=== PATIENT | female | born 1960 | race Caucasian/White ===

== ENCOUNTER 2017-10-29 06:00 | Day surgery (SDC) | payer BC ==
[2017-10-29] MEDS ORDERED: DIPRIVAN 200 MG/20 ML IV ONE (06:01)
[2017-10-29] MEDS ORDERED: Lactated Ringers 1,000 ML IV SCH (06:30)
[2017-10-29 08:19] VITALS: O2SAT 100
[2017-10-29 08:23] VITALS: BP 121/72; PULSE 61
--- NOTE | 2017-10-29 10:29 | OP ---
SURGERY DATE/TIME: 10/29/2017 0707 PREOPERATIVE DIAGNOSES: 1) Screening colonoscopy. 2) Constipation. POSTOPERATIVE DIAGNOSIS: Normal colon. PROCEDURE: Colonoscopy. SURGEON: Bill Parry M.D. ANESTHESIA: Conscious sedation by Edwin Nugent CRNA. ESTIMATED BLOOD LOSS: None. SPECIMENS: None. DESCRIPTION OF PROCEDURE: After informed written consent was obtained, the patient was taken to the endoscopy suite. She underwent monitored anesthesia and digital rectal exam showed normal sphincter tone and no internal lesions. The scope was inserted into the rectum and sequentially the entire colonic mucosa was traversed. The level of cecum was reached and verified with direct visualization of ileocecal valve. Upon withdrawal careful mucosal inspection revealed no obvious gross abnormalities. There was liquid stool present throughout much of the length of the colon. The prep was noted to be fair. Prior to withdrawal retroflexion was performed and showed no internal lesions. The scope was removed and the patient was transferred to the recovery room in excellent condition.
== END 2017-10-29 08:34 | disposition home or self-care (01) ==
LOC: SDC 06:00
PROVIDERS: ATTEND Family Medicine
DX: Z12.11 Encounter for screening for malignant neoplasm of colon (principal); K59.00 Constipation, unspecified
CPT/HCPCS: J2704

== ENCOUNTER 2018-05-02 20:09 | Emergency (ER) | payer BC ==
[2018-05-02 20:37] VITALS: BP 169/99; PULSE 96; O2SAT 99
--- NOTE | 2018-05-02 20:52 | ERPHSYRPT ---
- History of Present Illness Time Seen by Provider: 05/02/18 20:44 Historian: patient Exam Limitations: no limitations Patient Subjective Stated Complaint: pt reports vomiting starting at 0700 today , reports approx 12 episodes. denies abd pain or diarhea. Triage Nursing Assessment: pt is aox3, pupils perrl, afebrile, resps easy and non labored, radial pulses strong and equal, abd is soft and non tender, bowel sounds present and normoactive, no edema appreciated. pt mucous membranes appear dry. Physician History: 57-year-old white female with history of fibromyalgia, colitis, bipolar. Arrives with complaint of persistent nausea and vomiting symptoms for 13 hours she denies any pain no shortness of breath no chest pain no fevers. Past medical history includes fibromyalgia, colitis, bipolar disorder. Distant history of prescription drug abuse and alcohol abuse. Past surgical history includes cholecystectomy and hysterectomy. Timing/Duration: today (past 13 hours) Activities at Onset: none Quality: other (no pain) Abdominal Pain Onset Location: other (no pain) Severity of Pain-Max: none Severity of Pain-Current: none Associated Symptoms: nausea, vomiting, No back, No chest pain, No diaphoresis, No diarrhea, No fever/chills, No fatigue, No headache, No heartburn, No loss of appetite, No neck pain, No rash, No shortness of breath, No syncope, No testicular pain Previous symptoms: no prior history Allergies/Adverse Reactions: No Known Drug Allergies Allergy (Verified 05/02/18 20:37) Home Medications: Furosemide 20 mg [Lasix 20 mg] 20 mg PO BID 05/11/12 [History] Lamotrigine [Lamictal] 150 mg PO HS 05/11/12 [History] Paroxetine HCl [Paxil] 40 mg PO DAILY 05/11/12 [History] Potassium Chloride 10 Meq Tab* [Klor Con 10 MEQ] 10 meq PO BID 05/11/12 [ History] Albuterol Sulfate [Ventolin] 5 mg IH QIDPRN PRN 09/29/17 [History] Aspirin EC 325 mg [Ecotrin 325 MG] 325 mg PO DAILY 09/29/17 [History] Budesonide/Formoterol Fumarate [Symbicort 160-4.5 Mcg Inhaler] 10.2 gm IH BID [History] Diphenhydramine HCl [Benadryl] 50 mg PO Q4HPRN PRN 09/29/17 [History] Gabapentin [Neurontin] 600 mg PO TID 09/29/17 [History] Hydroxyzine Pamoate [Vistaril] 25 mg PO BID 09/29/17 [History] Lactobacillus Combo No.10 [Probiotic] 1 each PO BID 09/29/17 [History] Melatonin 5 mg PO HS 09/29/17 [History] Omeprazole 20 MG [Prilosec 20 mg] 20 mg PO BID 09/29/17 [History] Polyethylene Glycol [Polyox Wsr-301] 1 gm MC DAILY PRN PRN 09/29/17 [History] Primidone [Mysoline] 250 mg PO DAILY 09/29/17 [History] Sodium Phosphate,White-Dibasic [Enema] 133 ml RC DAILY PRN PRN 09/29/17 [History] Hx Tetanus, Diphtheria Vaccination/Date Given: No Hx Influenza Vaccination/Date Given: Yes Hx Pneumococcal Vaccination/Date Given: No Immunizations Up to Date: Yes - Review of Systems Constitutional: No Fever, No Chills Eyes: No Symptoms Ears, Nose, & Throat: No Symptoms Respiratory: No Symptoms Cardiac: No Chest Pain, No Edema, No Syncope Abdominal/Gastrointestinal: Nausea, Vomiting, No Abdominal Pain, No Diarrhea, No Constipation, No Hematemesis, No Hematochezia, No Melena, No Dysphagia, No Appetite Changes Genitourinary Symptoms: No Dysuria Musculoskeletal: No Back Pain, No Neck Pain Skin: No Rash Neurological: No Dizziness, No Focal Weakness, No Sensory Changes Psychological: No Symptoms Endocrine: No Symptoms All Other Systems: Reviewed and Negative - Past Medical History Pertinent Past Medical History: Yes Neurological History: No Pertinent History ENT History: No Pertinent History Cardiac History: No Pertinent History Respiratory History: Asthma Endocrine Medical History: No Pertinent History Musculoskeletal History: Fibromyalgia GI Medical History: Colitis History: No Pertinent History Psycho-Social History: Anxiety, Bipolar Female Reproductive Disorders: No Pertinent History Other Medical History: rx pain med addiction, has been clean for 8 years. fibromyalgia - Past Surgical History Past Surgical History: Yes Neuro Surgical History: No Pertinent History Cardiac: No Pertinent History Respiratory: No Pertinent History Gastrointestinal: Cholecystectomy Genitourinary: No Pertinent History Musculoskeletal: Orthopedic Surgery, Other Female Surgical History: Section, Hysterectomy Other Surgical History: right knee scope. - Social History Smoking Status: Never smoker Exposure to second hand smoke: No Alcohol Use: None Drug Use: none Patient Lives Alone: No Significant Family History: heart disease, hypertension - Female History Hx Now: No - Nursing Vital Signs Nursing Vital Signs: Initial Vital Signs Temperature 98.0 F 05/02/18 20:27 Pulse Rate 96 H 05/02/18 20:27 Respiratory Rate 20 05/02/18 20:27 Blood Pressure 169/99 05/02/18 20:27 O2 Sat by Pulse Oximetry 99 05/02/18 20:27 Pain Scale Pain Intensity 0 - Physical Exam General Appearance: other (well-developed well-nourished whitee female, pale) Eye Exam: PERRL/EOMI, eyes nml inspection Ears, Nose, Throat Exam: normal ENT inspection, pharynx normal, moist mucous membranes Neck Exam: normal inspection, non-tender, supple, full range of motion Respiratory Exam: normal breath sounds, lungs clear, No respiratory distress Cardiovascular Exam: regular rate/rhythm, normal heart sounds, capillary refill <2 sec Gastrointestinal/Abdomen Exam: soft Back Exam: normal inspection, normal range of motion, No CVA tenderness, No vertebral tenderness Extremity Exam: normal inspection, normal range of motion, pelvis stable Neurologic Exam: alert, oriented x 3, cooperative, greenhouse 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 nml as tested, normal mood/affect, nml cerebellar function, sensation nml, No motor deficits Skin Exam: pale SpO2 Interpretation: normal (99%) SpO2: 99 Oxygen Delivery: Room Air - Course Nursing assessment & vital signs reviewed: Yes EKG Interpreted by Me: RATE (71 bpm), Sinus Rhythm, NORMAL AXIS, Other (EKG: Sinus rhythm, 71 bpm, normal axis, no acute ST or T wave changes, essentially normal EKG) Ordered Tests: Active Orders 24 hr Category Date Time Status EKG-ER Only STAT Care 05/02/18 20:48 Active IV Insertion STAT Care 05/02/18 20:48 Active AMYLASE Stat Lab 05/02/18 21:14 Completed BLOOD CULTURE Stat Lab 05/02/18 21:42 Received CBC W DIFF Stat Lab 05/02/18 21:14 Completed CMP Stat Lab 05/02/18 21:14 Completed LIPASE Stat Lab 05/02/18 21:14 Completed Lactic Acid Stat Lab 05/02/18 21:20 Completed UA W/RFX UR CULTURE Stat Lab 05/02/18 23:21 Completed Medication Summary Discontinued Medications Generic Name Dose Route Start Last Admin Trade Name Sourav PRN Reason Stop Dose Admin Sodium Chloride 1,000 mls @ 999 mls/hr 05/02/18 20:48 05/02/18 21:27 Sodium Chloride 0.9% 1000 Ml IV 05/02/18 21:48 999 mls/hr .Q1H1M STA Administration Sodium Chloride Confirm 05/02/18 21:24 Sodium Chloride 0.9% 1000 Ml Administered 05/02/18 21:25 Dose 1,000 mls @ ud .ROUTE .STK-MED ONE Sodium Chloride 1,000 mls @ 999 mls/hr 05/02/18 21:51 05/02/18 22:51 Sodium Chloride 0.9% 1000 Ml IV 05/02/18 22:51 999 mls/hr .Q1H1M STA Administration Sodium Chloride Confirm 05/02/18 22:50 Sodium Chloride 0.9% 1000 Ml Administered 05/02/18 22:51 Dose 1,000 mls @ ud .ROUTE .STK-MED ONE Ondansetron HCl 4 mg 05/02/18 20:48 05/02/18 21:27 Zofran 4 Mg/2 Ml Vial IV 05/02/18 20:49 4 mg STAT ONE Administration Ondansetron HCl Confirm 05/02/18 21:23 Zofran 4 Mg/2 Ml Vial Administered 05/02/18 21:24 Dose 4 mg .ROUTE .STK-MED ONE Ondansetron HCl 4 mg 05/02/18 23:42 Zofran Odt 4 Mg PO 05/02/18 23:43 STAT ONE Lab/Rad Data: Laboratory Result Diagrams 05/02/18 21:14 05/02/18 21:14 Laboratory Results 05/02/18 05/02/18 05/02/18 Range/Units 23:21 21:20 21:14 WBC (4.0-10.5) K/mm3 RBC (4.1-5.4) M/mm3 Hgb (12.0-16.0) gm/dl Hct (35-47) % MCV (78-100) fl MCH (26-32) pg MCHC (32-36) g/dl RDW (11.5-14.0) % Plt Count (150-450) K/mm3 MPV (6-9.5) fl Gran % (36.0-66.0) % Eos # (Auto) (0-0.5) Absolute Lymphs (auto) (1.0-4.6) Absolute Monos (auto) (0.0-1.3) Lymphocytes % (24.0-44.0) % Monocytes % (0.0-12.0) % Eosinophils % (0.00-5.0) % Basophils % (0.0-0.4) % Absolute Granulocytes (1.4-6.9) Basophils # (0-0.4) Sodium 140 (137-145) mmol/L Potassium 4.8 (3.5-5.1) mmol/L Chloride 100 (98-107) mmol/L Carbon Dioxide 26 (22-30) mmol/L Anion Gap 18.9 H (5-15) MEQ/L BUN 20 H (7-17) mg/dL Creatinine 0.57 (0.52-1.04) mg/dL Estimated GFR > 60.0 ML/MIN Glucose 129 H (74-106) mg/dL Lactic Acid 1.9 (0.4-2.0) Calcium 10.1 (8.4-10.2) mg/dL Total Bilirubin 0.80 (0.2-1.3) mg/dL AST 36 (14-36) U/L ALT 28 (0-35) U/L Alkaline Phosphatase 63 (38-126) U/L Serum Total Protein 7.9 (6.3-8.2) g/dL Albumin 5.2 H (3.5-5.0) g/dL Amylase 41 (30-110) U/L Lipase 61 (23-300) U/L Urine Color YELLOW (YELLOW) Urine Appearance CLEAR (CLEAR) Urine pH 7.0 (5-6) Ur Specific [place] 1.027 (1.005-1.025) Urine Protein 30 (Negative) Urine Ketones SMALL (NEGATIVE) Urine Blood NEGATIVE (0-5) Timmy/ul Urine Nitrite NEGATIVE (NEGATIVE) Urine Bilirubin NEGATIVE (NEGATIVE) Urine Urobilinogen NEGATIVE (0-1) mg/dL Ur Leukocyte Esterase NEGATIVE (NEGATIVE) Urine WBC (Auto) 3-5 (0-5) /HPF Urine RBC (Auto) 3-5 (0-2) /HPF U Epithel Cells (Auto) NONE (FEW) /HPF Urine Bacteria (Auto) NONE SEEN (NEGATIVE) /HPF Urine Mucus (Auto) SLIGHT (NEGATIVE) /HPF Urine Culture Reflexed NO (NO) Urine Glucose NEGATIVE (NEGATIVE) mg/dL 05/02/18 Range/Units 21:14 WBC 7.2 (4.0-10.5) K/mm3 RBC 5.17 (4.1-5.4) M/mm3 Hgb 16.3 H (12.0-16.0) gm/dl Hct 47.8 H (35-47) % MCV 92.5 (78-100) fl MCH 31.5 (26-32) pg MCHC 34.1 (32-36) g/dl RDW 12.8 (11.5-14.0) % Plt Count 257 (150-450) K/mm3 MPV 9.2 (6-9.5) fl Gran % 86.6 H (36.0-66.0) % Eos # (Auto) 0.02 (0-0.5) Absolute Lymphs (auto) 0.56 L (1.0-4.6) Absolute Monos (auto) 0.36 (0.0-1.3) Lymphocytes % 7.8 L (24.0-44.0) % Monocytes % 5.0 (0.0-12.0) % Eosinophils % 0.3 (0.00-5.0) % Basophils % 0.3 (0.0-0.4) % Absolute Granulocytes 6.21 (1.4-6.9) Basophils # 0.02 (0-0.4) Sodium (137-145) mmol/L Potassium (3.5-5.1) mmol/L Chloride (98-107) mmol/L Carbon Dioxide (22-30) mmol/L Anion Gap (5-15) MEQ/L BUN (7-17) mg/dL Creatinine (0.52-1.04) mg/dL Estimated GFR ML/MIN Glucose (74-106) mg/dL Lactic Acid (0.4-2.0) Calcium (8.4-10.2) mg/dL Total Bilirubin (0.2-1.3) mg/dL AST (14-36) U/L ALT (0-35) U/L Alkaline Phosphatase (38-126) U/L Serum Total Protein (6.3-8.2) g/dL Albumin (3.5-5.0) g/dL Amylase (30-110) U/L Lipase (23-300) U/L Urine Color (YELLOW) Urine Appearance (CLEAR) Urine pH (5-6) Ur Specific [place] (1.005-1.025) Urine Protein (Negative) Urine Ketones (NEGATIVE) Urine Blood (0-5) Timmy/ul Urine Nitrite (NEGATIVE) Urine Bilirubin (NEGATIVE) Urine Urobilinogen (0-1) mg/dL Ur Leukocyte Esterase (NEGATIVE) Urine WBC (Auto) (0-5) /HPF Urine RBC (Auto) (0-2) /HPF U Epithel Cells (Auto) (FEW) /HPF Urine Bacteria (Auto) (NEGATIVE) /HPF Urine Mucus (Auto) (NEGATIVE) /HPF Urine Culture Reflexed (NO) Urine Glucose (NEGATIVE) mg/dL - Progress Progress: improved Progress Note: 05/02/18 23:39 57-year-old white female arrives with complaint of 13 hours of vomiting. Patient without any abdominal pain chest pain shortness of breath. Patient's labs essentially normal. Patient markedly improved after 2 L of normal saline and Zofran. Patient reexamined in no distress. Will plan to discharge patient. Place patient on clear fluids Zofran. - Departure Time of Disposition: 23:40 Departure Disposition: Home Clinical Impression: Dehydration Vomiting Qualifiers: Vomiting type: unspecified Vomiting Intractability: non-intractable Nausea presence: with nausea Qualified Code(s): R11.2 - Nausea with vomiting, unspecified Condition: Fair Critical Care Time: No Referrals: DOE MONTGOMERY MD [Primary Care Provider] - Instructions: Vomiting -- Adult Additional Instructions: Return home. Plenty of fluids. Clear fluids only 24-48 hours if nausea vomiting or abdominal pain. Zofran as prescribed. Follow-up with your family doctor if symptoms are worse, no better tomorrow, or persist longer than 48 hours. Return for acute distress or for severe symptoms. Prescriptions: Ondansetron ODT 4 MG [Zofran Odt 4 mg] 4 mg PO Q6H PRN PRN #10 tab.rapdis PRN Reason: nausea and vomiting
[2018-05-02 21:17] LABS: BASOPHIL % 0.3 % (0.0-0.4); Basophil (Absolute #) 0.02 (0-0.4); Eosinophil % 0.3 % (0.00-5.0); Eosinophil (Absolute #) 0.02 (0-0.5); Granulocyte Absolute (ANC) 6.21 (1.4-6.9); Granulocytes % 86.6 % (36.0-66.0); Hematocrit 47.8 % (35-47); Hemoglobin 16.3 gm/dl (12.0-16.0); Lymphocyte (Absolute #) 0.56 (1.0-4.6); Lymphocytes % 7.8 % (24.0-44.0); Mean Cell Volume 92.5 fl (78-100); Mean Corpuscular Hemoglobin 31.5 pg (26-32); Mean Corpuscular Hgb Concent. 34.1 g/dl (32-36); Mean Platelet Volume 9.2 fl (6-9.5); Monocyte (Absolute #) 0.36 (0.0-1.3); Platelet Count 257 K/mm3 (150-450); Red Blood Count 5.17 M/mm3 (4.1-5.4); Red Cell Distribution Width 12.8 % (11.5-14.0); White Blood Count 7.2 K/mm3 (4.0-10.5)
[2018-05-02] MEDS ORDERED: Zofran 4 MG/2 ML VIAL ONE (21:23)
[2018-05-02] MEDS ORDERED: Sodium Chloride 0.9% 1000 ML 1,000 ML ONE ×2 (21:24→22:50)
[2018-05-02 21:27] LABS: ALBUMIN 5.2 g/dL (3.5-5.0); ALKALINE PHOSPHATASE 63 U/L (38-126); AMYLASE 41 U/L (30-110); ANION GAP 18.9 MEQ/L (5-15); BLOOD UREA NITROGEN 20 mg/dL (7-17); CHLORIDE 100 mmol/L (98-107); Calcium 10.1 mg/dL (8.4-10.2); Carbon Dioxide 26 mmol/L (22-30); Creatinine 1 0.57 mg/dL (0.52-1.04); Glucose 129 mg/dL (74-106); LIPASE 61 U/L (23-300); Potassium 4.8 mmol/L (3.5-5.1); SGOT/AST 36 U/L (14-36); SGPT/ALT 28 U/L (0-35); SODIUM 140 mmol/L (137-145); Total Protein 7.9 g/dL (6.3-8.2)
[2018-05-02] MEDS: Sodium Chloride 0.9% 1000 ML 1,000 ML IV STA ×2 (21:27→22:51)
[2018-05-02] MEDS: Zofran 4 MG/2 ML VIAL IV ONE (21:27)
[2018-05-02 21:29] LABS: Lactic Acid 1.9 (0.4-2.0)
[2018-05-02 23:33] LABS: Appearance CLEAR (CLEAR); Bilirubin NEGATIVE (NEGATIVE); Blood NEGATIVE Ery/ul (0-5); Glucose NEGATIVE (NEGATIVE); Ketones SMALL (NEGATIVE); Leukocyte Esterase NEGATIVE (NEGATIVE); Nitrite NEGATIVE (NEGATIVE); Protein,Urine Dip 30 (Negative); Specific Gravity 1.027 (1.005-1.025); Urobilinogen NEGATIVE mg/dL (0-1)
[2018-05-03] MEDS ORDERED: ZOFRAN ODT 4 MG ONE (00:43)
[2018-05-03] MEDS: ZOFRAN ODT 4 MG PO ONE (00:45)
== END 2018-05-03 00:58 | disposition home or self-care (01) ==
LOC: ED 20:09
DX: E86.0 Dehydration (principal); R11.2 Nausea with vomiting, unspecified; Z79.899 Other long term (current) drug therapy
CPT/HCPCS: 36000; 36415; 80053; 81001; 82150; 83605; 83690; 85025; 87040; 93005; 96360; 96361; 96374; 99284; J2405; Q0162

== ENCOUNTER 2018-06-16 12:00 | Emergency (ER) | payer BC ==
[2018-06-16 12:23] VITALS: BP 148/86; PULSE 63; O2SAT 100
[2018-06-16] MEDS ORDERED: Adacel Vial IM ONE ×2 (12:31→12:41)
[2018-06-16] MEDS ORDERED: BACIGUENT PACKET TP ONE (12:31)
--- NOTE | 2018-06-16 12:37 | ERPHSYRPT ---
- History of Present Illness Time Seen by Provider: 06/16/18 12:26 Source: patient Exam Limitations: no limitations Patient Subjective Stated Complaint: slammed ring finger on left hand in a metal garage door Triage Nursing Assessment: Pt c/o of left hand ring finger pain due to slamming her finger in a metal garage door, nail is bruised and bloody underneath, throbbing pain with movement, vitals wnl, pulses normal, rates pain with movement of 10/10, nonmovement 3/10 Physician History: This is a 57-year-old white female she arrives with complaint of pain of her left distal fourth finger also subungual hematoma of the left distal fourth finger symptoms for 2 hours. According to the patient she has got it caught under arrives door. She has the above complaints. Last tetanus is 7 years ago. She denies any other complaints. Past medical history includes sleep apnea, angina, hypercholesterolemia, colitis , osteoarthritis, anxiety, bipolar depression, fibromyalgia, alcoholism in the past, prescription drug abuse in the past. Patient states she's been clean for about 9 years. Past surgical history includes cholecystectomy, , hysterectomy, orthopedic surgery, right knee scope Social history of currently denies alcohol tobacco or illicit drug use Occurred: this morning (2 hours ago) Method of Injury: other (Struck by a garage door) Quality: constant Severity of Pain-Max: moderate Severity of Pain-Current: mild Extremities Pain Location: 4th finger: left Modifying Factors: Improves With: nothing Associated Symptoms: none Allergies/Adverse Reactions: No Known Drug Allergies Allergy (Verified 06/16/18 12:23) Home Medications: Furosemide 20 mg [Lasix 20 mg] 20 mg PO BID 05/11/12 [History] Lamotrigine [Lamictal] 200 mg PO HS 05/11/12 [History] Paroxetine HCl [Paxil] 40 mg PO DAILY 05/11/12 [History] Potassium Chloride 10 Meq Tab* [Klor Con 10 MEQ] 10 meq PO BID 05/11/12 [ History] Albuterol Sulfate [Ventolin] 5 mg IH QIDPRN PRN 09/29/17 [History] Aspirin EC 325 mg [Ecotrin 325 MG] 325 mg PO DAILY 09/29/17 [History] Budesonide/Formoterol Fumarate [Symbicort 160-4.5 Mcg Inhaler] 10.2 gm IH BID [History] Diphenhydramine HCl [Benadryl] 50 mg PO Q4HPRN PRN 09/29/17 [History] Gabapentin [Neurontin] 600 mg PO TID 09/29/17 [History] Hydroxyzine Pamoate [Vistaril] 25 mg PO BID 09/29/17 [History] Lactobacillus Combo No.10 [Probiotic] 1 each PO BID 09/29/17 [History] Melatonin 5 mg PO HS 09/29/17 [History] Polyethylene Glycol [Polyox Wsr-301] 1 gm MC DAILY PRN PRN 09/29/17 [History] Primidone [Mysoline] 250 mg PO DAILY 09/29/17 [History] Metoprolol Tartrate 25 mg PO DAILY 06/16/18 [History] Milnacipran HCl [Savella] 50 mg PO QAM 06/16/18 [History] Hx Tetanus, Diphtheria Vaccination/Date Given: No Hx Influenza Vaccination/Date Given: Yes Hx Pneumococcal Vaccination/Date Given: No - Review of Systems Constitutional: No Fever, No Chills Eyes: No Symptoms Ears, Nose, & Throat: No Symptoms Respiratory: No Cough, No Dyspnea Cardiac: No Chest Pain, No Edema, No Syncope Abdominal/Gastrointestinal: No Abdominal Pain, No Nausea, No Vomiting, No Diarrhea Genitourinary Symptoms: No Dysuria Musculoskeletal: Injury (left fourth finger struck by a garage door), Other ( pain left fourth finger, subungual hematoma left fourth finger) Skin: Other (abrasion dorsal distal fourth finger) Neurological: No Dizziness, No Focal Weakness, No Sensory Changes Psychological: No Symptoms Endocrine: No Symptoms All Other Systems: Reviewed and Negative - Past Medical History Pertinent Past Medical History: Yes Neurological History: No Pertinent History ENT History: No Pertinent History Cardiac History: Angina, High Cholesterol Respiratory History: Sleep Apnea Endocrine Medical History: No Pertinent History Musculoskeletal History: Osteoarthritis GI Medical History: Colitis History: No Pertinent History Psycho-Social History: Anxiety, Bipolar Female Reproductive Disorders: No Pertinent History Other Medical History: Fibromyalgia. Justina reports that she is an alcoholic and prescription drug addict. - Past Surgical History Past Surgical History: Yes Neuro Surgical History: No Pertinent History Cardiac: No Pertinent History Respiratory: No Pertinent History Gastrointestinal: Cholecystectomy Genitourinary: No Pertinent History Musculoskeletal: Orthopedic Surgery, Other Female Surgical History: Section, Hysterectomy Other Surgical History: right knee scope. - Social History Smoking Status: Never smoker Exposure to second hand smoke: No Alcohol Use: None Drug Use: none Patient Lives Alone: No Significant Family History: heart disease, hypertension - Female History Hx Now: No - Nursing Vital Signs Nursing Vital Signs: Initial Vital Signs Temperature 97.9 F 06/16/18 12:13 Pulse Rate 63 06/16/18 12:13 Blood Pressure 148/86 06/16/18 12:13 O2 Sat by Pulse Oximetry 100 06/16/18 12:13 Pain Scale Pain Intensity 10 - Physical Exam General Appearance: mild distress, alert Eyes, Ears, Nose, Throat Exam: moist mucous membranes Neck Exam: non-tender, supple Cardiovascular/Respiratory Exam: chest non-tender, normal breath sounds, regular rate/rhythm, no respiratory distress Abdominal Exam: non-tender, No guarding Back Exam: normal inspection, No vertebral tenderness Shoulder Exam: normal inspection, non-tender, no evidence of injury, normal ROM Elbow/Forearm Exam: normal inspection, non-tender, no evidence of injury, normal ROM Wrist Exam: normal inspection, non-tender, no evidence of injury, normal ROM Hand Exam: normal ROM, No normal inspection (left fourth finger with abrasion proximal to the nail dorsally, pain with palpation left distal fourth finger, subungual hematoma left fourth finger. Sensation intact to all fingers. Good capillary refil to all fingers) Neuro/Tendon Exam: normal sensation, normal motor functions Mental Status Exam: alert, oriented x 3, cooperative Skin Exam: normal color, warm, dry, other (Abrasion proximal tonail left fourth finger dorsally) SpO2 Interpretation: normal (100%) SpO2: 100 Oxygen Delivery: Room Air - Course Nursing assessment & vital signs reviewed: Yes - Radiology Exams Left Other X-ray Interpretation: Discussed w/ radiologist (x-ray left fourth finger: Nondisplaced tuft fracture with soft tissue swelling. No other bony, articular , or soft tissue abnormalies) Ordered Tests: Active Orders 24 hr Category Date Time Status Splint STAT Care 06/16/18 13:16 Ordered Wound Care STAT Care 06/16/18 12:31 Active FINGER(S) Stat Exams 06/16/18 13:01 Completed Medication Summary Discontinued Medications Generic Name Dose Route Start Last Admin Trade Name Sourav PRN Reason Stop Dose Admin Bacitracin Zinc 0.9 gm 06/16/18 12:31 06/16/18 13:06 Baciguent Packet TP 06/16/18 12:32 0.9 gm STAT ONE Administration Bacitracin Zinc Confirm 06/16/18 12:41 Baciguent Packet Administered 06/16/18 12:42 Dose 1 gm .ROUTE .STK-MED ONE Cephalexin HCl 500 mg 06/16/18 13:15 Keflex 500 Mg PO 06/16/18 13:16 STAT ONE Diphtheria/Tetanus/Acell Pertussis 0.5 ml 06/16/18 12:31 06/16/18 13:07 Adacel Vial IM 06/16/18 12:32 0.5 ml .ONCE ONE Administration Diphtheria/Tetanus/Acell Pertussis Confirm 06/16/18 12:41 Adacel Vial Administered 06/16/18 12:42 Dose 0.5 ml IM .STK-MED ONE - Progress Progress: improved Progress Note: 06/16/18 13:18 57-year-old white female with the left fourth finger pain after having it struck by a garage door. Patient will with a left fourth toe subungual hematoma. Also patient with a nondisplaced fracture. Patient took aspirin prior to arrival did not want pain medications states she will take Advil at home as needed for pain. Left fourth finger sterilely cleansed by the nurse. Catheterization performed than usual fashion with cautery. Splint placed on left fourth finger (fingertip). Will place patient on Keflex 500 mg orally every 6 hours 7 days. Patient to follow-up with Dr. Montgomery and/or [facility] orthopedics. DTaP has been updated bacitracin was applied as well as dressing. - Departure Time of Disposition: 13:19 Departure Disposition: Home Clinical Impression: Closed fracture of tuft of distal phalanx of finger, Subungual hematoma Condition: Fair Critical Care Time: No Referrals: DOE MONTGOMERY MD [Primary Care Provider] - Instructions: Finger Fracture (DC) Additional Instructions: Return home. Keflex 500 mg orally every 6 hours 7 days. Advil as needed for pain. Cold packs and elevate left hand 24-48 hours. Follow-up with your family doctor or [facility] orthopedics. (Call and arrange appointment for follow-up) Return for acute distress severe symptoms or for any problems. Prescriptions: Cephalexin Mh 500 mg [Keflex 500 mg] 500 mg PO Q6H #28 capsule
[2018-06-16] MEDS ORDERED: BACIGUENT PACKET ONE (12:41)
--- NOTE | 2018-06-16 13:14 | XRAY ---
Indication: Pain following injury. Comparison: None 3 views of the left 4th finger demonstrates nondisplaced tuft fracture with soft tissue swelling. No other bony, articular, or soft tissue abnormalities.
[2018-06-16] MEDS ORDERED: KEFLEX 500 MG PO ONE (13:15)
[2018-06-16] MEDS ORDERED: KEFLEX 500 MG ONE (13:30)
== END 2018-06-16 13:53 | disposition home or self-care (01) ==
LOC: ED 12:00
DX: S62.635A Displaced fracture of distal phalanx of left ring finger, initial encounter for closed fracture (principal); S60.142A Contusion of left ring finger with damage to nail, initial encounter; W22.09XA Striking against other stationary object, initial encounter; M79.645 Pain in left finger(s); G47.30 Sleep apnea, unspecified; E78.00 Pure hypercholesterolemia, unspecified; M19.90 Unspecified osteoarthritis, unspecified site; F41.9 Anxiety disorder, unspecified; F31.9 Bipolar disorder, unspecified; M79.7 Fibromyalgia; Z79.899 Other long term (current) drug therapy
CPT/HCPCS: 73140; 90471; 90715; 99283; A9270-GY

== ENCOUNTER 2018-08-27 19:27 | Emergency (ER) | payer BC ==
[2018-08-27] MEDS ORDERED: TYLENOL 325 MG PO STA (20:02)
[2018-08-27] MEDS ORDERED: Augmentin 875-125 Tablet PO ONE (20:03)
--- NOTE | 2018-08-27 20:03 | ERPHSYRPT ---
- History of Present Illness Time Seen by Provider: 08/27/18 19:50 Source: patient Exam Limitations: clinical condition Patient Subjective Stated Complaint: pt reports bilat ear pain, starting today, states shes also had a scratchy throat, pt reports drainage from left ear yellow in color. pt reports she is in severe pain. pt reports history of substance abuse and alcoholism and states she doesnt want pain medication. Triage Nursing Assessment: pt is aox3, pupils perrl, afebrile, resps easy and non labored, radial pulses strong and equal, cap refill < 3 sec, pt skin pink warm dry. moderate amount of cerumen noted to bilat ears. no drainage noted. Physician History: PATIENT COMPLAINS OF OF BILATERAL EARACHES, LEFT GREATER THAN RIGHT, ASSOCIATED WITH SORETHROAT AND LOW GRADE FEVER. DENIES COUGH OR DYSPNEA. Timing/Duration: gradual onset Severity: moderate ENT Location: ear (L), throat Prearrival Treatment: over the counter meds (ASPIRIN) Modifying Factors: Improves With: nothing Associated Symptoms: ear pain (R), ear pain (L) Allergies/Adverse Reactions: No Known Drug Allergies Allergy (Verified 08/27/18 19:47) Home Medications: Furosemide 20 mg [Lasix 20 mg] 20 mg PO BID 05/11/12 [History] Lamotrigine [Lamictal] 200 mg PO HS 05/11/12 [History] Paroxetine HCl [Paxil] 40 mg PO DAILY 05/11/12 [History] Potassium Chloride 10 Meq Tab* [Klor Con 10 MEQ] 10 meq PO BID 05/11/12 [ History] Albuterol Sulfate [Ventolin] 5 mg IH QIDPRN PRN 09/29/17 [History] Aspirin EC 325 mg [Ecotrin 325 MG] 325 mg PO DAILY 09/29/17 [History] Budesonide/Formoterol Fumarate [Symbicort 160-4.5 Mcg Inhaler] 10.2 gm IH BID [History] Diphenhydramine HCl [Benadryl] 50 mg PO Q4HPRN PRN 09/29/17 [History] Gabapentin [Neurontin] 600 mg PO TID 09/29/17 [History] Hydroxyzine Pamoate [Vistaril] 25 mg PO BID 09/29/17 [History] Lactobacillus Combo No.10 [Probiotic] 1 each PO BID 09/29/17 [History] Melatonin 5 mg PO HS 09/29/17 [History] Polyethylene Glycol [Polyox Wsr-301] 1 gm MC DAILY PRN PRN 09/29/17 [History] Primidone [Mysoline] 250 mg PO DAILY 09/29/17 [History] Metoprolol Tartrate 25 mg PO DAILY 06/16/18 [History] Milnacipran HCl [Savella] 50 mg PO QAM 06/16/18 [History] Hx Tetanus, Diphtheria Vaccination/Date Given: Yes Hx Influenza Vaccination/Date Given: Yes Hx Pneumococcal Vaccination/Date Given: No Immunizations Up to Date: Yes - Review of Systems Constitutional: No Fever, No Chills Eyes: No Symptoms Ears, Nose, & Throat: Ear Pain, Throat Pain Respiratory: No Symptoms, No Cough, No Dyspnea Cardiac: No Symptoms, No Chest Pain, No Edema, No Syncope Abdominal/Gastrointestinal: No Abdominal Pain, No Nausea, No Vomiting, No Diarrhea Genitourinary Symptoms: No Dysuria Musculoskeletal: No Symptoms, No Back Pain, No Neck Pain Skin: No Symptoms, No Rash Neurological: No Dizziness, No Focal Weakness, No Sensory Changes Psychological: No Symptoms Endocrine: No Symptoms All Other Systems: Reviewed and Negative - Past Medical History Pertinent Past Medical History: Yes Neurological History: No Pertinent History ENT History: No Pertinent History Cardiac History: Angina, High Cholesterol Respiratory History: Sleep Apnea Endocrine Medical History: No Pertinent History Musculoskeletal History: Osteoarthritis GI Medical History: Colitis History: No Pertinent History Psycho-Social History: Anxiety, Bipolar Female Reproductive Disorders: No Pertinent History Other Medical History: Fibromyalgia. Justina reports that she is an alcoholic and prescription drug addict. - Past Surgical History Past Surgical History: Yes Neuro Surgical History: No Pertinent History Cardiac: No Pertinent History Respiratory: No Pertinent History Gastrointestinal: Cholecystectomy Genitourinary: No Pertinent History Musculoskeletal: Orthopedic Surgery, Other Female Surgical History: Section, Hysterectomy Other Surgical History: right knee scope. - Social History Smoking Status: Never smoker Exposure to second hand smoke: No Alcohol Use: None Drug Use: none Patient Lives Alone: No Significant Family History: heart disease, hypertension - Female History Hx Now: No - Nursing Vital Signs Nursing Vital Signs: Initial Vital Signs Temperature 99.3 F 08/27/18 19:35 Pulse Rate 83 08/27/18 19:35 Respiratory Rate 18 08/27/18 19:35 Blood Pressure 164/93 08/27/18 19:35 O2 Sat by Pulse Oximetry 100 08/27/18 19:35 Pain Scale Pain Intensity 10 - Physical Exam General Appearance: no apparent distress Eye Exam: bilateral eye: normal inspection, PERRL Ear Exam: right ear: canal normal, TM normal, left ear: swelling (LEFT CANAL SWELLING WITH ERYTHEMA), TM red Nasal Exam: normal inspection Throat Exam: normal, pharynx normal, moist mucus membranes, No tonsillar exudate Cardiovascular/Respiratory Exam: chest non-tender, normal breath sounds SpO2 Interpretation: normal SpO2: 100 O2 Delivery: Room Air Ordered Tests: Medication Summary Discontinued Medications Generic Name Dose Route Start Last Admin Trade Name Freq PRN Reason Stop Dose Admin Acetaminophen 650 mg 08/27/18 20:02 Tylenol 325 Mg PO 08/27/18 20:03 STAT STA Amoxicillin/Clavulanate Potassium 875 mg 08/27/18 20:03 Augmentin 875-125 Tablet PO 08/27/18 20:04 STAT ONE - Progress Progress Note: 08/27/18 20:15 ADMINISTERED AUGMENTIN 875MG ORALLY, TYLENOL 650MG ORALLY - Departure Departure Disposition: Home Clinical Impression: LEFT OTITIS MEDIA/EXTERNA Condition: Stable Critical Care Time: No Referrals: DOE MONTGOMERY MD [Primary Care Provider] - Additional Instructions: TYLENOL OR MOTRIN NEEDED FOR PAIN OR FEVER. ANTIBIOTIC AUGMENTIN 875MG TWICE DAILY FOR 10 DAYS. CORTISPORIN OTIC SOLUTION APPLY 3 DROPS INTO YOUR LEFT EAR CANAL EVERY 6 HOURS FOR 7 DAYS. CONSULT YOUR PRIMARY CARE PROVIDER FOR FOLLOWUP. Prescriptions: Amox Tr/Potass Clav. 875 mg [Augmentin 875-125 Tablet] 875 mg PO BID #20 tablet Edwin/Baci/Poly/Hc Ear Solution* [CORTISPORIN EAR DROPS Solution 1OML] 3 drops OT QID #10 bottle
[2018-08-27] MEDS ORDERED: TYLENOL 325 MG ONE (20:17)
[2018-08-27] MEDS ORDERED: Augmentin 875-125 Tablet ONE (20:17)
[2018-08-27 20:32] VITALS: BP 134/69; PULSE 88; O2SAT 99
== END 2018-08-27 20:40 | disposition home or self-care (01) ==
LOC: ED 19:27
DX: H66.92 Otitis media, unspecified, left ear (principal); H60.92 Unspecified otitis externa, left ear; Z79.899 Other long term (current) drug therapy
CPT/HCPCS: 99283; A9270-GY

== ENCOUNTER 2018-12-31 14:02 | Emergency (ER) | payer BC ==
--- NOTE | 2018-12-31 14:20 | ERPHSYRPT ---
- History of Present Illness Time Seen by Provider: 12/31/18 14:19 Source: patient Exam Limitations: no limitations Physician History: 58 y/o white female presents to ED with right ankle pain 2 hours after twisting it on curb. pt states she does not want any narcotic pain medications. pt can put weight on it but it hurts to do so. Occurred: just prior to arrival Reason for Fall: tripped Injuries/Pain Location: lower extremity (right ankle) Loss of Consciousness: no loss of consciousness Severity of Pain-Max: mild Severity of Pain-Current: mild Modifying Factors: Improves With: movement Associated Symptoms (Fall): extremity injury (right ankle abrasion to right knee ) Allergies/Adverse Reactions: No Known Drug Allergies Allergy (Verified 08/27/18 19:47) Home Medications: Furosemide 20 mg [Lasix 20 mg] 20 mg PO BID 05/11/12 [History] Lamotrigine [Lamictal] 200 mg PO HS 05/11/12 [History] Paroxetine HCl [Paxil] 40 mg PO DAILY 05/11/12 [History] Potassium Chloride 10 Meq Tab* [Klor Con 10 MEQ] 10 meq PO BID 05/11/12 [ History] Albuterol Sulfate [Ventolin] 5 mg IH QIDPRN PRN 09/29/17 [History] Aspirin EC 325 mg [Ecotrin 325 MG] 325 mg PO DAILY 09/29/17 [History] Budesonide/Formoterol Fumarate [Symbicort 160-4.5 Mcg Inhaler] 10.2 gm IH BID [History] Diphenhydramine HCl [Benadryl] 50 mg PO Q4HPRN PRN 09/29/17 [History] Gabapentin [Neurontin] 600 mg PO TID 09/29/17 [History] Hydroxyzine Pamoate [Vistaril] 25 mg PO BID 09/29/17 [History] Lactobacillus Combo No.10 [Probiotic] 1 each PO BID 09/29/17 [History] Melatonin 5 mg PO HS 09/29/17 [History] Polyethylene Glycol [Polyox Wsr-301] 1 gm MC DAILY PRN PRN 09/29/17 [History] Primidone [Mysoline] 250 mg PO DAILY 09/29/17 [History] Metoprolol Tartrate 25 mg PO DAILY 06/16/18 [History] Milnacipran HCl [Savella] 50 mg PO QAM 06/16/18 [History] Hx Tetanus, Diphtheria Vaccination/Date Given: Yes Hx Influenza Vaccination/Date Given: Yes Hx Pneumococcal Vaccination/Date Given: No - Review of Systems Constitutional: No Symptoms Eyes: No Symptoms Ears, Nose, & Throat: No Symptoms Respiratory: No Symptoms Cardiac: No Symptoms Abdominal/Gastrointestinal: No Symptoms Genitourinary Symptoms: No Symptoms Musculoskeletal: Injury, Joint Pain (right ankle) Skin: No Symptoms Neurological: No Symptoms Psychological: No Symptoms Endocrine: No Symptoms Hematologic/Lymphatic: No Symptoms Immunological/Allergic: No Symptoms All Other Systems: Reviewed and Negative - Past Medical History Pertinent Past Medical History: Yes Neurological History: No Pertinent History ENT History: No Pertinent History Cardiac History: Angina, High Cholesterol Respiratory History: Sleep Apnea Endocrine Medical History: No Pertinent History Musculoskeletal History: Osteoarthritis GI Medical History: Colitis History: No Pertinent History Psycho-Social History: Anxiety, Bipolar Female Reproductive Disorders: No Pertinent History Other Medical History: Fibromyalgia. Justina reports that she is an alcoholic and prescription drug addict. - Past Surgical History Past Surgical History: Yes Neuro Surgical History: No Pertinent History Cardiac: No Pertinent History Respiratory: No Pertinent History Gastrointestinal: Cholecystectomy Genitourinary: No Pertinent History Musculoskeletal: Orthopedic Surgery, Other Female Surgical History: Section, Hysterectomy Other Surgical History: right knee scope. - Social History Smoking Status: Never smoker Exposure to second hand smoke: No Alcohol Use: None Drug Use: none Patient Lives Alone: No Significant Family History: heart disease, hypertension - Nursing Vital Signs Nursing Vital Signs: Initial Vital Signs Temperature 99.2 F 12/31/18 14:17 Pulse Rate 68 12/31/18 14:17 Respiratory Rate 16 12/31/18 14:17 Blood Pressure 153/98 12/31/18 14:17 O2 Sat by Pulse Oximetry 98 12/31/18 14:17 Pain Scale Pain Intensity 6 - [place] Coma Score Best Eye Response (Shayna): (4) open spontaneously Best Verbal Response (Shayna): (5) oriented Best Motor Response (Shayna): (6) obeys commands [place] Total: 15 - Physical Exam General Appearance: no apparent distress, alert, anxiety Head Injury: no evidence of injury Eye Exam: PERRL/EOMI, eyes nml inspection ENT Exam: airway nml, nml ext.inspection, No evidence of ENT injury Neck Exam: supple, trachea midline, full range of motion, normal alignment, normal inspection Respiratory/Chest Exam: No chest tenderness Gastrointestinal Exam: No tenderness Rectal Exam: not done Back Exam: normal inspection, normal range of motion, No CVA tenderness, No vertebral tenderness Extremity Exam: pelvis stable, evidence of injury, pain with movement, swelling (right ankle lateral aspect), tenderness Neurologic Exam: alert, oriented x 3, cooperative, 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 tested, normal mood/affect, nml cerebellar function, sensation nml Skin Exam: normal color, warm, dry SpO2 Interpretation: normal O2 Delivery: Room Air Ordered Tests: Active Orders 24 hr Category Date Time Status ANKLE (3 VIEWS) Stat Exams 12/31/18 14:24 Completed - Progress Progress: unchanged, pain not gone completely, re-examined Progress Note: 12/31/18 15:01 right ankle xray-no acute fx or dislocation Counseled pt/family regarding: diagnosis, need for follow-up, rad results - Departure Departure Disposition: Home Clinical Impression: Ankle sprain Condition: Stable Critical Care Time: No Referrals: DOE MONTGOMERY MD [Primary Care Provider] - Additional Instructions: ice pack to area 3 times daily for 2 days. use tylenol and ibuprofen for pain. weightbearing as tolerated. follow up with primary doctor for persistent pain and swelling.
[2018-12-31 14:26] VITALS: O2SAT 98
--- NOTE | 2018-12-31 14:43 | XRAY ---
Indication: Pain following fall/twisting injury. Comparison: None 3 views of the right ankle demonstrates lateral soft tissue swelling. No other bony, articular, or soft tissue abnormalities.
[2018-12-31 15:00] VITALS: BP 128/78; PULSE 58
== END 2018-12-31 15:55 | disposition home or self-care (01) ==
LOC: ED 14:02
DX: S93.401A Sprain of unspecified ligament of right ankle, initial encounter (principal); S80.211A Abrasion, right knee, initial encounter; W01.10XA Fall on same level from slipping, tripping and stumbling with subsequent striking against unspecified object, initial encounter; X50.1XXA Overexertion from prolonged static or awkward postures, initial encounter; Y93.89 Activity, other specified; Y92.89 Other specified places as the place of occurrence of the external cause
CPT/HCPCS: 73610; 99283

== ENCOUNTER 2019-11-07 13:29 | Emergency (ER) | payer BC ==
[2019-11-07 13:51] VITALS: BP 108/63; PULSE 92; O2SAT 99
[2019-11-07] MEDS ORDERED: BABY ASPIRIN 81 MG CHEW PO ONE (13:58)
--- NOTE | 2019-11-07 14:01 | ERPHSYRPT ---
- History of Present Illness Time Seen by Provider: 11/07/19 13:44 Source: patient, other () Exam Limitations: no limitations Patient Subjective Stated Complaint: pt reports she is one week status post triple bypass graft. pt reports today she has a heaviness in her chest and is increasingly short of breath. Triage Nursing Assessment: pt is aox3, pt pale, pt appears in pain, afebrile, pupils perrl, pt is short of breath, pt is able to speak in 4-5 word sentences, pt radial pulses strong and regular, cap refill 3 seconds, pt warm dry. pt with wound vac in place to mid sternal surgical site. skin visible around site does not appear reddened. no drainage or odor present. Physician History: 58 yo wf s/p acute anterior NV 10/31/19/angioplasty/CABG presents w dyspnea x2.5 hr/chest pressure. EKG w elevation V2 and depression in inferior/lateral leads. There is no post-op ekg to compare. [facility]. Given 324 ASA before transfer. Heparin/plavix avoided due to post-op status. Timing/Duration: other (2.5hr) Activities at Onset: rest Severity of Dyspnea-Max: mild Severity of Dyspnea-Current: mild Possible Cause: no prior episodes Associated Symptoms: chest pain/discomfort, heaviness, No calf pain Allergies/Adverse Reactions: No Known Drug Allergies Allergy (Verified 11/07/19 13:53) Home Medications: Furosemide 20 mg [Lasix 20 mg] 20 mg PO BID 05/11/12 [History] Lamotrigine [Lamictal] 200 mg PO HS 05/11/12 [History] PARoxetine HCl [Paxil] 40 mg PO DAILY 05/11/12 [History] Potassium Chloride 10 Meq Tab* [Klor Con 10 MEQ] 10 meq PO BID 05/11/12 [ History] Albuterol Sulfate [Ventolin] 5 mg IH QIDPRN PRN 09/29/17 [History] Aspirin EC 325 mg [Ecotrin 325 MG] 325 mg PO DAILY 09/29/17 [History] Budesonide/Formoterol Fumarate [Symbicort 160-4.5 Mcg Inhaler] 10.2 gm IH BID [History] Gabapentin [Neurontin] 600 mg PO TID 09/29/17 [History] Lactobacillus Combo No.10 [Probiotic] 1 each PO BID 09/29/17 [History] Melatonin 5 mg PO HS 09/29/17 [History] Polyethylene Glycol [Polyox Wsr-301] 1 gm MC DAILY PRN PRN 09/29/17 [History] Primidone [Mysoline] 250 mg PO DAILY 09/29/17 [History] diphenhydrAMINE HCL [Benadryl] 50 mg PO Q4HPRN PRN 09/29/17 [History] hydrOXYzine pamoate [Vistaril] 25 mg PO BID 09/29/17 [History] Metoprolol Tartrate 25 mg PO DAILY 06/16/18 [History] Milnacipran HCl [Savella] 50 mg PO QAM 06/16/18 [History] Hx Tetanus, Diphtheria Vaccination/Date Given: Yes Hx Influenza Vaccination/Date Given: Yes Hx Pneumococcal Vaccination/Date Given: No Travel Risk - International Travel Have you traveled outside of the country in past 3 weeks: No Have you or anyone close to you been diagnosed with or: No Do your reside in a community with a known COVID-19 case?: Yes If Yes where:: [place] - Coronavirus Screening Has patient experienced Coronavirus symptoms: No - Review of Systems Constitutional: No Symptoms Eyes: No Symptoms Ears, Nose, & Throat: No Symptoms Respiratory: Dyspnea on Exertion (RIVERA) Cardiac: Chest Pain Abdominal/Gastrointestinal: No Symptoms Genitourinary Symptoms: No Symptoms Musculoskeletal: No Symptoms Skin: No Symptoms Neurological: No Symptoms Psychological: No Symptoms Endocrine: No Symptoms Hematologic/Lymphatic: No Symptoms Immunological/Allergic: No Symptoms - Past Medical History Pertinent Past Medical History: Yes Neurological History: No Pertinent History ENT History: No Pertinent History Cardiac History: Angina, High Cholesterol Respiratory History: Sleep Apnea Endocrine Medical History: No Pertinent History Musculoskeletal History: Osteoarthritis GI Medical History: Colitis History: No Pertinent History Psycho-Social History: Anxiety, Bipolar Female Reproductive Disorders: No Pertinent History Other Medical History: Fibromyalgia. Justina reports that she is an alcoholic and prescription drug addict. - Past Surgical History Past Surgical History: Yes Neuro Surgical History: No Pertinent History Cardiac: No Pertinent History, CABG Respiratory: No Pertinent History Gastrointestinal: Cholecystectomy Genitourinary: No Pertinent History Musculoskeletal: Orthopedic Surgery, Other Female Surgical History: Section, Hysterectomy Other Surgical History: right knee scope. - Social History Smoking Status: Never smoker Exposure to second hand smoke: No Alcohol Use: None Drug Use: none Patient Lives Alone: No Significant Family History: heart disease, hypertension - Nursing Vital Signs Nursing Vital Signs: Initial Vital Signs Pulse Rate 92 H 11/07/19 13:31 Respiratory Rate 22 11/07/19 13:31 Blood Pressure 108/63 11/07/19 13:31 O2 Sat by Pulse Oximetry 99 11/07/19 13:31 Pain Scale Pain Intensity 2 - Physical Exam General Appearance: mild distress, anxiety Eye Exam: PERRL/EOMI Ears, Nose, Throat Exam: hearing grossly normal, normal ENT inspection, normal pharynx Neck Exam: normal inspection, non-tender Respiratory Exam: crackles/rales (L base), other (Sternotomy dressed) Cardiovascular/Chest Exam: normal heart sounds, regular rate/rhythm, No murmur Abdominal/Gastrointestinal Exam: soft, No tenderness Extremity Exam: non-tender, normal range of motion, swelling (Mild pre-tibial edema(improved per pt)) Neurologic Exam: alert, oriented x 3, cooperative, car dispatcher II-XII nml as tested, normal mood/affect Skin Exam: normal color, warm Lymphatic Exam: adenopathy SpO2 Interpretation: normal SpO2: 99 O2 Delivery: Room Air - Course Nursing assessment & vital signs reviewed: Yes EKG Interpreted by Me: RATE (NSR/Elevation V2/Diffuse ST depression/Poor R wave progression) Ordered Tests: Active Orders 24 hr Category Date Time Status CHEST 1 VIEW (PORTABLE) Stat Exams 11/07/19 13:45 Ordered CBC W DIFF Stat Lab 11/07/19 13:44 Ordered CMP Stat Lab 11/07/19 13:44 Ordered PROTIME WITH INR Stat Lab 11/07/19 13:44 Ordered PTT Stat Lab 11/07/19 13:44 Ordered TROPONIN Q3H Lab 11/07/19 13:45 Ordered TROPONIN Q3H Lab 11/07/19 16:45 Ordered TROPONIN Q3H Lab 11/07/19 19:45 Ordered TROPONIN Q3H Lab 11/07/19 22:45 Ordered TROPONIN Q3H Lab 11/08/19 01:45 Ordered - Progress Progress: unchanged Air Movement: good Progress Note: 11/07/19 14:06 Since pt post-op angioplasty w subsequent STEMI and elevation in V2 wo post-op comparison, pt transferred to [facility] for cardiology/CT surgery consult. Counseled pt/family regarding: diagnosis (Need for transfer) - Departure Departure Disposition: Transfer Clinical Impression: Dyspnea, Chest pain Condition: Fair Critical Care Time: Yes Critical Care Time(excluding separately billable procedures): Critical 30-74 mins Referrals: DOE MONTGOMERY MD [Primary Care Provider] -
== END 2019-11-07 13:55 | disposition short-term general hospital (02) ==
LOC: ED 13:29
DX: R06.00 Dyspnea, unspecified (principal); R07.89 Other chest pain; Z79.899 Other long term (current) drug therapy; G47.30 Sleep apnea, unspecified; Z98.61 Coronary angioplasty status
CPT/HCPCS: 36000; 36415; 84484; 93005; 93041; 99285; 99291; A9270-GY

== ENCOUNTER 2024-02-29 17:18 | Emergency (ER) | payer MEDICARE ==
[2024-02-29 17:32] VITALS: TEMP 97.1
--- NOTE | 2024-02-29 17:45 | ERPHSYRPT ---
<YUAN SALEH - Last Filed: 02/29/24 19:57> - History of Present Illness Time Seen by Provider: 02/29/24 17:38 Historian: patient, family Exam Limitations: no limitations Patient Subjective Stated Complaint: chest pain, L arm numbness, shooting stabbing pain from L arm to L ribs/chest Triage Nursing Assessment: pt to ED c/o chest pain onset around 1700 today. states she has CP off and on and when this pain did not ease and got worse she came to ED. hx of [place] October 2019 and felt very similar to this, sees Dr Partida. stress test couple weeks ago, found blockages, has appointment with Helga Thursday. heart sounds clear, normal S1 and S2, RRR. slight edema, non pitting, in ankles. Physician History: 63 years old female with past medical history of coronary artery disease status post bypass back in October 2019 at [facility] in [place]. History of hypertension, congestive heart failure. Patient is presenting to the emergency room accompanied by her with a chief complaint of left-sided crushing chest pain that started at home an hour prior to arrival to the emergency room with there were getting ready to go outside and eat. The patient states that her chest pain was around her left breast crushing in nature with shortness of breath although she was short of breath all day long. He felt some numbness in her left upper extremity. The patient states that she is scheduled to have a coronary angiogram this coming Thursday after tomorrow because of an abnormality on nuclear stress test done last week. Her electric fork operator is out of [facility] in [place]. Aspirin Treatment Today: 81 mg x 4 Allergies/Adverse Reactions: No Known Drug Allergies Allergy (Verified 11/07/19 13:53) Home Medications: Furosemide 20 mg [Lasix 20 mg] 20 mg PO BID 05/11/12 [History] PARoxetine HCL [Paxil] 40 mg PO DAILY 05/11/12 [History] Potassium Chloride Tab* [Klor Con] 10 meq PO BID 05/11/12 [History] lamoTRIgine [Lamictal] 200 mg PO HS 05/11/12 [History] Albuterol Sulfate [Ventolin] 5 mg IH QIDPRN PRN 09/29/17 [History] Aspirin EC 325 mg [Ecotrin 325 MG] 325 mg PO DAILY 09/29/17 [History] Budesonide/Formoterol Fumarate [Symbicort 160-4.5 Mcg Inhaler] 10.2 gm IH BID 0 09/29/17 [History] Gabapentin [Neurontin] 600 mg PO TID 09/29/17 [History] Lactobacillus Combo No.10 [Probiotic] 1 each PO BID 09/29/17 [History] Melatonin 5 mg PO HS 09/29/17 [History] Polyethylene Glycol [Polyox Wsr-301] 1 gm MC DAILY PRN PRN 09/29/17 [History] Primidone [Mysoline] 250 mg PO DAILY 09/29/17 [History] diphenhydrAMINE HCL [Benadryl] 50 mg PO Q4HPRN PRN 09/29/17 [History] hydrOXYzine pamoate [Vistaril] 25 mg PO BID 09/29/17 [History] Metoprolol Tartrate 25 mg PO DAILY 06/16/18 [History] Milnacipran HCl [Savella] 50 mg PO QAM 06/16/18 [History] Hx Tetanus, Diphtheria Vaccination/Date Given: Yes Hx Influenza Vaccination/Date Given: Yes Hx Pneumococcal Vaccination/Date Given: No Travel Risk - International Travel Have you traveled outside of the country in past 3 weeks: No - Emerging Infectious Disease Are you exhibiting symptoms associated with any current EIDs: No - Review of Systems Constitutional: No Symptoms Respiratory: Dyspnea Cardiac: Chest Pain All Other Systems: Reviewed and Negative - Past Medical History Pertinent Past Medical History: Yes Neurological History: No Pertinent History ENT History: No Pertinent History Cardiac History: Angina, High Cholesterol, Myocardial Infarction ([place]) Respiratory History: Sleep Apnea Endocrine Medical History: No Pertinent History Musculoskeletal History: Osteoarthritis GI Medical History: Colitis History: No Pertinent History Psycho-Social History: Anxiety, Bipolar Female Reproductive Disorders: No Pertinent History Other Medical History: Fibromyalgia. 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 Significant Family History: heart disease, hypertension - Social History Smoking Status: Never smoker Exposure to second hand smoke: No Alcohol Use: None Drug Use: none Patient Lives Alone: No - Physical Exam General Appearance: no apparent distress Eye Exam: PERRL/EOMI, eyes nml inspection Ears, Nose, Throat Exam: normal ENT inspection, TMs normal, pharynx normal Neck Exam: normal inspection, non-tender, supple, full range of motion Respiratory Exam: normal breath sounds, lungs clear Cardiovascular Exam: regular rate/rhythm, normal heart sounds, normal peripheral pulses Gastrointestinal/Abdomen Exam: soft, normal bowel sounds, distention Pelvic Exam: not done Rectal Exam: deferred Back Exam: normal inspection, normal range of motion Extremity Exam: normal inspection, normal range of motion, pelvis stable Neurologic Exam: alert, oriented x 3, 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 The patient presented to emergency room complaining of left-sided squeezing chest pain that started an hour prior to arrival to the emergency room with numbness in her left hand. On arrival to the emergency room she had an EKG done, sinus rhythm, 60 bpm, anteroseptal infarct of indeterminate age. The patient will be given 4 baby aspirin Check CBC, CMP, troponin, chest x-ray Will consult with her electric fork operator at [facility]. The patient is supposed to have a cardiac cath this coming Thursday at [facility]. 02/29/24 19:06 The patient remains pain-free, troponin less than 0.012. Sodium 136, potassium 4.5, chloride 99, BUN 13, creatinine 0.93. White blood cell count 5.5, hemoglobin 13.4 hematocrit 41 platelets 226. The case will be endorsed to Dr. Sabillon at the change of shift to follow-up on the second troponin and probably consult with her electric fork operator at [facility] since the patient is scheduled to have a cardiac cath this coming Thursday. - Departure Departure Disposition: Transfer Clinical Impression: Left-sided chest pain, Nonspecific chest pain Condition: Stable Critical Care Time: Yes Critical Care Time(excluding separately billable procedures): Critical 75-104 mins Referrals: DOE MONTGOMERY MD [Primary Care Provider] - Follow up/PCP as directed Additional Instructions: Drink plenty of fluids. Take your medications as prescribed. Call your electric fork operator tomorrow morning, 03/01/2024, to advise him of the symptoms you are having this evening and the workup results that we performed today in the emergency department as well as the recommendations by Dr. Frazier. <ENOCH SABILLON. - Last Filed: 02/29/24 21:32> - Nursing Vital Signs Nursing Vital Signs: Initial Vital Signs Temperature 97.1 F 02/29/24 17:18 Pulse Rate 61 02/29/24 17:18 Respiratory Rate 20 02/29/24 17:18 Blood Pressure 114/80 02/29/24 17:18 O2 Sat by Pulse Oximetry 97 02/29/24 17:18 Pain Scale Pain Intensity 0 - Course EKG Interpreted by Me: RATE Ordered Tests: Active Orders 24 hr Category Date Time Status EKG-ER Only STAT Care 02/29/24 17:46 Active IV Insertion STAT Care 02/29/24 17:46 Active CHEST 1 VIEW (PORTABLE) Stat Exams 02/29/24 17:46 Taken CBC W DIFF Stat Lab 02/29/24 17:45 Completed CMP Stat Lab 02/29/24 17:45 Completed PROTIME WITH INR Stat Lab 02/29/24 17:45 Completed PTT Stat Lab 02/29/24 17:45 Completed TROPONIN Q4H Lab 02/29/24 17:45 Completed TROPONIN Q4H Lab 02/29/24 20:46 Completed TROPONIN Q4H Lab 03/01/24 02:00 Ordered Medication Summary Discontinued Medications Generic Name Dose Route Start Last Admin Trade Name Freq PRN Reason Stop Dose Admin Aspirin 324 mg 02/29/24 17:46 02/29/24 17:55 Aspirin 81 Mg Tab.Chew PO 02/29/24 17:47 324 mg STAT ONE Administration Aspirin Confirm 02/29/24 17:55 Aspirin 81 Mg Tab.Chew Administered 02/29/24 17:56 Dose 324 mg .ROUTE .STK-MED ONE Lab/Rad Data: Laboratory Result Diagrams 02/29/24 17:45 02/29/24 17:45 Laboratory Results 02/29/24 02/29/24 02/29/24 Range/Units 20:46 17:45 17:45 WBC (3.98-10.04) x10^3/uL RBC (3.93-5.22) x10^6/uL Hgb (11.2-15.7) g/dL Hct (34.1-44.9) % MCV (79.4-94.8) fL MCH (25.6-32.2) pg MCHC (32.2-35.5) g/dL RDW (11.7-14.4) % Plt Count (182-369) x10^3/uL MPV (9.4-12.3) fL Gran % (34.0-71.1) % Immature Gran % (Auto) (0.001-0.429) % Nucleat RBC Rel Count (0.00-0.2) % Eos # (Auto) (0.04-0.36) x10^3/uL Immature Gran # (Auto) (0.001-0.031) x10^3u/L Absolute Lymphs (auto) (1.18-3.74) x10^3/uL Absolute Monos (auto) (0.24-0.86) x10^3/uL Absolute Nucleated RBC (0.00-0.012) x10^3u/L Lymphocytes % (19.3-51.7) % Monocytes % (4.7-12.5) % Eosinophils % (0.7-5.8) % Basophils % (0.1-1.2) % Absolute Granulocytes (1.56-6.13) x10^3/uL Basophils # (0.01-0.08) x10^3/uL PT 10.2 (9.4-12.5) SECONDS INR 0.93 (0.8-3.0) APTT 25.1 (25.1-36.5) SECONDS Sodium (135-145) mmol/L Potassium (3.5-5.1) mmol/L Chloride (98-107) mmol/L Carbon Dioxide (22-30) mmol/L Anion Gap (5-15) MEQ/L BUN (7-17) mg/dL Creatinine (0.52-1.04) mg/dL Estimated GFR ML/MIN Glucose (74-106) mg/dL Calcium (8.4-10.2) mg/dL Total Bilirubin (0.2-1.3) mg/dL AST (14-36) U/L ALT (0-35) U/L Alkaline Phosphatase (38-126) U/L Troponin I < 0.012 < 0.012 (0.000-0.033) ng/mL Serum Total Protein (6.3-8.2) g/dL Albumin (3.5-5.0) g/dL 02/29/24 02/29/24 Range/Units 17:45 17:45 WBC 5.5 (3.98-10.04) x10^3/uL RBC 4.23 (3.93-5.22) x10^6/uL Hgb 13.4 (11.2-15.7) g/dL Hct 40.0 (34.1-44.9) % MCV 94.6 (79.4-94.8) fL MCH 31.7 (25.6-32.2) pg MCHC 33.5 (32.2-35.5) g/dL RDW 13.0 (11.7-14.4) % Plt Count 226 (182-369) x10^3/uL MPV 9.0 L (9.4-12.3) fL Gran % 51.8 (34.0-71.1) % Immature Gran % (Auto) 0.2 (0.001-0.429) % Nucleat RBC Rel Count 0.0 (0.00-0.2) % Eos # (Auto) 0.17 (0.04-0.36) x10^3/uL Immature Gran # (Auto) 0.01 (0.001-0.031) x10^3u/L Absolute Lymphs (auto) 1.92 (1.18-3.74) x10^3/uL Absolute Monos (auto) 0.46 (0.24-0.86) x10^3/uL Absolute Nucleated RBC 0.00 (0.00-0.012) x10^3u/L Lymphocytes % 35.0 (19.3-51.7) % Monocytes % 8.4 (4.7-12.5) % Eosinophils % 3.1 (0.7-5.8) % Basophils % 1.5 H (0.1-1.2) % Absolute Granulocytes 2.85 (1.56-6.13) x10^3/uL Basophils # 0.08 (0.01-0.08) x10^3/uL PT (9.4-12.5) SECONDS INR (0.8-3.0) APTT (25.1-36.5) SECONDS Sodium 136 (135-145) mmol/L Potassium 4.5 (3.5-5.1) mmol/L Chloride 99 (98-107) mmol/L Carbon Dioxide 29 (22-30) mmol/L Anion Gap 12.8 (5-15) MEQ/L BUN 13 (7-17) mg/dL Creatinine 0.93 (0.52-1.04) mg/dL Estimated GFR 68.2 ML/MIN Glucose 99 (74-106) mg/dL Calcium 9.5 (8.4-10.2) mg/dL Total Bilirubin 0.40 (0.2-1.3) mg/dL AST 27 (14-36) U/L ALT 24 (0-35) U/L Alkaline Phosphatase 51 (38-126) U/L Troponin I (0.000-0.033) ng/mL Serum Total Protein 7.2 (6.3-8.2) g/dL Albumin 4.5 (3.5-5.0) g/dL - Progress Progress Note: 02/29/24 20:[address] Frazier, the electric fork operator covering for this patient's electric fork operator, Dr. Partida. I reviewed the patient history, presenting complaint and laboratory data results including the twelve-lead EKG and troponin level. [facility] has no beds at this time and likely will not have a bed available until tomorrow evening. Dr. Frazier recommended that if the patient is pain- free, the repeat twelve-lead EKG shows no acute ischemia, and the repeat troponin level is normal, the patient can be discharged to home with instruction to follow-up with her electric fork operator tomorrow, 03/01/2024 in the morning. Otherwise, patient could possibly be placed in our facility on a monitored bed until tomorrow evening, if the hospitalist agrees. 02/29/24 21:28 I interpreted the patient's second, repeat twelve-lead EKG performed on 02/29/2024 at 2044. Patient's heart rate is 56 bpm. There is normal sinus rhythm. There is normal QRS, there is normal axis deviation, there are normal intervals. There is no evidence of any acute ischemia. Patient states that her chest pain is completely resolved and has been throughout her stay here in the emergency department. Per Dr. Frazier (electric fork operator) the patient can be discharged to home under these conditions/criteria. Blood Culture(s) Obtained: No Antibiotics given: No Counseled pt/family regarding: lab results, diagnosis, need for follow-up, rad results Medical Desision Making - Independent Historian Additional History obtained from: Spouse - Diagnostic Testing Diagnostic test were ordered, analyzed, and reviewed by me: Yes - Risk of complications Low Risk: Low risk of morbidity from additional dx testing or treatment
[2024-02-29] MEDS: BABY ASPIRIN 81 MG CHEW PO ONE (17:55)
[2024-02-29] MEDS ORDERED: BABY ASPIRIN 81 MG CHEW ONE (17:55)
[2024-02-29 17:58] LABS: Absolute Neutrophil Ct (ANC) 2.85 x10^3/uL (1.56-6.13); BASOPHIL % 1.5 % (0.1-1.2); Basophil (Absolute #) 0.08 x10^3/uL (0.01-0.08); Eosinophil % 3.1 % (0.7-5.8); Eosinophil (Absolute #) 0.17 x10^3/uL (0.04-0.36); Hemoglobin 13.4 g/dL (11.2-15.7); IMMATURE GRAN # 0.01 x10^3u/L (0.001-0.031); IMMATURE GRAN % 0.2 % (0.001-0.429); Lymphocyte (Absolute #) 1.92 x10^3/uL (1.18-3.74); Mean Cell Volume 94.6 fL (79.4-94.8); Mean Corpuscular Hemoglobin 31.7 pg (25.6-32.2); Mean Corpuscular Hgb Concent. 33.5 g/dL (32.2-35.5); Monocyte (Absolute #) 0.46 x10^3/uL (0.24-0.86); Monocytes % 8.4 % (4.7-12.5); Neutrophil % 51.8 % (34.0-71.1); Platelet Count 226 x10^3/uL (182-369); Red Blood Count 4.23 x10^6/uL (3.93-5.22); White Blood Count 5.5 x10^3/uL (3.98-10.04)
[2024-02-29 18:12] LABS: ALBUMIN 4.5 g/dL (3.5-5.0); ANION GAP 12.8 MEQ/L (5-15); BILIRUBIN,TOTAL 0.4 mg/dL (0.2-1.3); Calcium 9.5 mg/dL (8.4-10.2); Creatinine 1 0.93 mg/dL (0.52-1.04); EST GLOMERULAR FILTRATION RATE 68.2 ML/MIN; Potassium 4.5 mmol/L (3.5-5.1); Total Protein 7.2 g/dL (6.3-8.2)
[2024-02-29 18:13] LABS: INR 0.93 (0.8-3.0); PROTIME 10.2 SECONDS (9.4-12.5); PTT 25.1 SECONDS (25.1-36.5)
[2024-02-29 21:19] VITALS: O2SAT 96
[2024-02-29 21:41] VITALS: BP 118/82; PULSE 72; RESP 16
--- NOTE | 2024-03-01 09:06 | XRAY ---
Indication: Chest pain. Comparison: February 26, 2024 Portable chest less inflated and remains clear again with incidental right upper lung calcified granuloma. Heart not enlarged again with CABG. No new/acute findings.
== END 2024-02-29 21:43 | disposition home or self-care (01) ==
LOC: ED 17:18
DX: R07.9 Chest pain, unspecified (principal); R06.02 Shortness of breath; R20.0 Anesthesia of skin; I11.0 Hypertensive heart disease with heart failure; I50.9 Heart failure, unspecified; E78.5 Hyperlipidemia, unspecified; Z79.899 Other long term (current) drug therapy
CPT/HCPCS: 36000; 36415; 71045; 80053; 84484; 85025; 85610; 85730; 93005; 99284; 99291; 99292; A9270-GY